=== PATIENT | female | born 1990 | race African-American/Black ===

== ENCOUNTER 2016-07-12 09:52 | Emergency (ER) | payer OTHER ==
[~2016-07-12] VITALS: Ht 162.6 cm; Wt 122.5 kg
[2016-07-12 09:53] VITALS: BP 157/101
[2016-07-12] MEDS ORDERED: PENICILLIN V P500 MG PO (09:59)
[2016-07-12] MEDS ORDERED: DELTASONE20 MG PO (10:29)
[2016-07-12] MEDS ORDERED: VENTOLIN HFA 1818 GM INH (10:29)
[2016-07-12] MEDS ORDERED: PHENERGAN 25 MG25 M1 PO (10:29)
[2016-07-12] MEDS ORDERED: PRELONE15 MG/5 ML PO (10:35)
== END 2016-07-12 10:50 | disposition home or self-care (01) ==
LOC: ER 09:52
DX: J20.8 Acute bronchitis due to other specified organisms (principal); Z88.6 Allergy status to analgesic agent; Z88.2 Allergy status to sulfonamides; F10.99 Alcohol use, unspecified with unspecified alcohol-induced disorder

== ENCOUNTER 2016-12-30 23:03 | Emergency (ER) | payer OTHER ==
[~2016-12-30] VITALS: Ht 162.6 cm; Wt 142.9 kg
[~2016-12-30 23:03] MED LIST: DELTASONE20 MG PO; PENICILLIN V P500 MG PO; PHENERGAN 25 MG25 M1 PO; PRELONE15 MG/5 ML PO; VENTOLIN HFA 1818 GM INH
[2016-12-30] MEDS ORDERED: TORADOL 10 MG T10 MG PO (23:36)
[2016-12-31] VITALS: BP 158/88
== END 2016-12-31 00:02 | disposition home or self-care (01) ==
LOC: ER 23:03
DX: M25.562 Pain in left knee (principal); Z98.890 Other specified postprocedural states; Z88.6 Allergy status to analgesic agent; Z88.2 Allergy status to sulfonamides; W01.0XXA Fall on same level from slipping, tripping and stumbling without subsequent striking against object, initial encounter; Y93.89 Activity, other specified; Y92.89 Other specified places as the place of occurrence of the external cause; Y99.8 Other external cause status

== ENCOUNTER 2017-11-18 09:34 | Emergency (ER) | payer OTHER ==
[~2017-11-18] VITALS: Ht 162.6 cm; Wt 145.2 kg
[~2017-11-18 09:34] MED LIST changes: +ONE-A-DAY WOMENS PO; +TORADOL 10 MG T10 MG PO
[2017-11-18] MEDS ORDERED: IBUPROFEN 400400 M2 PO (09:52)
[2017-11-18 10:30] VITALS: BP 150/104
== END 2017-11-18 10:30 | disposition home or self-care (01) ==
LOC: ER 09:34
DX: S93.492A Sprain of other ligament of left ankle, initial encounter (principal); Z88.6 Allergy status to analgesic agent; Z88.2 Allergy status to sulfonamides; X50.1XXA Overexertion from prolonged static or awkward postures, initial encounter; Y93.89 Activity, other specified; Y92.89 Other specified places as the place of occurrence of the external cause; Y99.8 Other external cause status

== ENCOUNTER 2018-02-01 11:34 | Emergency (ER) | payer OTHER ==
[~2018-02-01] VITALS: Ht 162.6 cm; Wt 136.1 kg
[~2018-02-01 11:34] MED LIST changes: +IBUPROFEN 400400 M2 PO
[2018-02-01 11:36] VITALS: BP 133/88
[2018-02-01] MEDS ORDERED: AMOXICILLIN875 MG PO (11:58)
== END 2018-02-01 12:13 | disposition home or self-care (01) ==
LOC: ER 11:34
DX: H66.91 Otitis media, unspecified, right ear (principal); Z88.6 Allergy status to analgesic agent; Z88.2 Allergy status to sulfonamides; Z90.89 Acquired absence of other organs; Z98.890 Other specified postprocedural states

== ENCOUNTER 2018-03-16 08:50 | Emergency (ER) | payer OTHER ==
[~2018-03-16] VITALS: Ht 162.6 cm; Wt 145.2 kg
[~2018-03-16 08:50] MED LIST changes: +AMOXICILLIN875 MG PO
[2018-03-16] MEDS ORDERED: TRAMADOL 50 MG50 MG PO (09:19)
[2018-03-16 09:58] VITALS: BP 139/88
== END 2018-03-16 09:50 | disposition home or self-care (01) ==
LOC: ER 08:50
DX: S63.601A Unspecified sprain of right thumb, initial encounter (principal); Z88.2 Allergy status to sulfonamides; Z88.6 Allergy status to analgesic agent; X50.9XXA Other and unspecified overexertion or strenuous movements or postures, initial encounter; Y93.89 Activity, other specified; Y92.512 Supermarket, store or market as the place of occurrence of the external cause; Y99.8 Other external cause status

== ENCOUNTER 2018-05-14 19:01 | Emergency (ER) | payer OTHER ==
[~2018-05-14] VITALS: Ht 162.6 cm; Wt 136.1 kg
[~2018-05-14 19:01] MED LIST changes: +TRAMADOL 50 MG50 MG PO
[2018-05-14 20:52] VITALS: BP 137/83
== END 2018-05-14 20:53 | disposition home or self-care (01) ==
LOC: ER 19:01
DX: S09.90XA Unspecified injury of head, initial encounter (principal); V89.2XXA Person injured in unspecified motor-vehicle accident, traffic, initial encounter; Y93.89 Activity, other specified; Y92.89 Other specified places as the place of occurrence of the external cause; Y99.8 Other external cause status

== ENCOUNTER 2018-06-24 16:02 | Emergency (ER) | payer OTHER ==
[~2018-06-24] VITALS: Ht 162.6 cm; Wt 136.1 kg
[2018-06-24 16:02] VITALS: BP 149/95
[2018-06-24] MEDS ORDERED: AMOXICILLIN 50500 MG PO (16:28)
[2018-06-24] MEDS ORDERED: IBUPROFEN 600600 M1 PO (16:28)
[2018-06-24] MEDS ORDERED: TRAMADOL 50 MG50 MG PO (16:38)
== END 2018-06-24 16:48 | disposition home or self-care (01) ==
LOC: ER 16:02
DX: K08.89 Other specified disorders of teeth and supporting structures (principal); E66.01 Morbid (severe) obesity due to excess calories; Z68.43 Body mass index [BMI] 50.0-59.9, adult; Z88.2 Allergy status to sulfonamides; Z88.6 Allergy status to analgesic agent; Z98.890 Other specified postprocedural states

== ENCOUNTER 2018-07-31 22:09 | Emergency (ER) | payer OTHER ==
[~2018-07-31] VITALS: Ht 152.4 cm; Wt 167.8 kg
[~2018-07-31 22:09] MED LIST changes: +AMOXICILLIN 50500 MG PO; +IBUPROFEN 600600 M1 PO
[2018-07-31 22:42] LABS: URINE BILIRUBIN NEGATIVE (Negative); URINE BLOOD NEGATIVE (Negative); URINE CLARITY CLEAR; URINE COLOR YELLOW; URINE GLUCOSE-RANDOM* NEGATIVE (Negative); URINE KETONES NEGATIVE (Negative); URINE LEUKOCYTES-REFLEX NEGATIVE (Negative); URINE NITRITE-REFLEX NEGATIVE (Negative); URINE PROTEIN (DIPSTICK) NEGATIVE (Negative); URINE SPECIFIC GRAVITY 1.025 (1.005-1.035); URINE UROBILINOGEN 0.2 E.U./dl (0.2-1.0)
[2018-07-31 22:52] LABS: ABSOLUTE NEUTROPHILS 3.7 thou/uL (1.4-8.2); BASOPHILS 0.3 % (0.0-2.0); EOSINOPHILS 2.1 % (0.0-3.0); HEMATOCRIT 38.4 % (37.0-47.0); HEMOGLOBIN 12.5 gm/dL (12.0-15.0); LYMPHOCYTES 31.9 % (24.0-44.0); MCH 27.6 pg (26.0-34.0); MCHC 32.5 g/dL (28.0-37.0); MCV 84.9 fL (80.0-100.0); MONOCYTES 6.3 % (1.0-8.0); PLATELET COUNT 233 thou/uL (150-400); POLYS 59.4 % (36.0-66.0); RBC 4.53 mil/uL (4.20-5.00); RDW 15.4 % (10.5-14.5); WBC 6.2 thou/uL (4.0-11.0)
[2018-07-31 22:59] LABS: CALCIUM 9.4 mg/dL (8.5-10.1); CREATININE 0.8 mg/dL (0.6-1.0)
[2018-07-31] MEDS ORDERED: ERYTHROMYCIN E3.5 G2 TOP (23:02)
[2018-07-31] MEDS ORDERED: NAPROSYN500 MG PO (23:02)
[2018-07-31 23:05] LABS: ALBUMIN 3.8 g/dL (3.4-5.0); TOTAL BILIRUBIN 0.6 mg/dL (<0.1-1.0); TOTAL PROTEIN 8.5 g/dL (6.4-8.2)
[2018-07-31 23:12] VITALS: BP 119/72
== END 2018-07-31 23:17 | disposition home or self-care (01) ==
LOC: ER 22:09
PROVIDERS: Emergency Medicine
DX: G44.209 Tension-type headache, unspecified, not intractable (principal); H01.004 Unspecified blepharitis left upper eyelid; E66.01 Morbid (severe) obesity due to excess calories; Z88.6 Allergy status to analgesic agent; Z88.2 Allergy status to sulfonamides; Z98.890 Other specified postprocedural states; Z90.89 Acquired absence of other organs; Z68.45 Body mass index [BMI] 70 or greater, adult

== ENCOUNTER 2018-11-13 09:28 | Emergency (ER) | payer OTHER ==
[~2018-11-13] VITALS: Ht 152.4 cm; Wt 149.7 kg
[~2018-11-13 09:28] MED LIST changes: +ERYTHROMYCIN E3.5 G2 TOP; +NAPROSYN500 MG PO
[2018-11-13 09:52] LABS: URINE BILIRUBIN NEGATIVE (Negative); URINE BLOOD NEGATIVE (Negative); URINE CLARITY CLEAR; URINE COLOR YELLOW; URINE GLUCOSE-RANDOM* NEGATIVE (Negative); URINE KETONES NEGATIVE (Negative); URINE LEUKOCYTES-REFLEX TRACE (Negative); URINE NITRITE-REFLEX NEGATIVE (Negative); URINE PROTEIN (DIPSTICK) NEGATIVE (Negative); URINE UROBILINOGEN 0.2 E.U./dl (0.2-1.0)
[2018-11-13 10:33] LABS: ABSOLUTE NEUTROPHILS 2.7 thou/uL (1.4-8.2); BASOPHILS 0.8 % (0.0-2.0); EOSINOPHILS 1.3 % (0.0-3.0); HEMATOCRIT 35.4 % (37.0-47.0); HEMOGLOBIN 11.3 gm/dL (12.0-15.0); MCH 26.8 pg (26.0-34.0); MCHC 31.9 g/dL (28.0-37.0); MONOCYTES 7.8 % (1.0-8.0); PLATELET COUNT 242 thou/uL (150-400); POLYS 60.1 % (36.0-66.0); RBC 4.21 mil/uL (4.20-5.00); RDW 15.5 % (10.5-14.5); WBC 4.5 thou/uL (4.0-11.0)
[2018-11-13 10:50] LABS: CALCIUM 9.1 mg/dL (8.5-10.1); CREATININE 0.9 mg/dL (0.6-1.0); POTASSIUM 4.1 mmol/L (3.5-5.1)
[2018-11-13 10:57] LABS: ALBUMIN 3.4 g/dL (3.4-5.0); TOTAL BILIRUBIN 0.4 mg/dL (<0.1-1.0); TOTAL PROTEIN 7.7 g/dL (6.4-8.2)
[2018-11-13] MEDS ORDERED: MOBIC7.5 MG PO (12:05)
[2018-11-13] MEDS ORDERED: TRAMADOL 50 MG50 MG PO (12:05)
[2018-11-13] MEDS ORDERED: NORFLEX100 MG PO (12:05)
[2018-11-13 12:47] VITALS: BP 132/91
== END 2018-11-13 12:49 | disposition home or self-care (01) ==
LOC: ER 09:28
PROVIDERS: Emergency Medicine; Nurse Practitioner Family
DX: M54.5 Low back pain (principal); E66.01 Morbid (severe) obesity due to excess calories; Z88.6 Allergy status to analgesic agent; Z88.2 Allergy status to sulfonamides; Z98.890 Other specified postprocedural states; Z90.89 Acquired absence of other organs; Z68.44 Body mass index [BMI] 60.0-69.9, adult

== ENCOUNTER 2019-01-15 15:11 | Emergency (ER) | payer OTHER ==
[~2019-01-15] VITALS: Ht 162.6 cm; Wt 147.4 kg
[~2019-01-15 15:11] MED LIST changes: +MOBIC7.5 MG PO; +NORFLEX100 MG PO
[2019-01-15] MEDS ORDERED: TRAMADOL 50 MG50 MG PO (16:08)
[2019-01-15 16:28] VITALS: BP 124/72
== END 2019-01-15 16:25 | disposition home or self-care (01) ==
LOC: ER 15:11
DX: J02.9 Acute pharyngitis, unspecified (principal); E66.01 Morbid (severe) obesity due to excess calories; Z68.43 Body mass index [BMI] 50.0-59.9, adult; Z88.2 Allergy status to sulfonamides; Z88.6 Allergy status to analgesic agent; Z98.890 Other specified postprocedural states

== ENCOUNTER 2019-04-29 14:34 | Emergency (ER) | payer OTHER ==
[~2019-04-29] VITALS: Ht 162.6 cm; Wt 154.2 kg
[2019-04-29] MEDS ORDERED: MOBIC15 MG PO ×2 (16:51→16:52)
[2019-04-29 16:56] VITALS: BP 121/74
== END 2019-04-29 17:05 | disposition home or self-care (01) ==
LOC: ER 14:34
DX: R51 Headache (principal); R42 Dizziness and giddiness; E66.01 Morbid (severe) obesity due to excess calories; Z68.43 Body mass index [BMI] 50.0-59.9, adult; Z98.890 Other specified postprocedural states; Z90.49 Acquired absence of other specified parts of digestive tract; Z88.2 Allergy status to sulfonamides; Z88.8 Allergy status to other drugs, medicaments and biological substances